=== PATIENT | male | born 1950 ===

== ENCOUNTER 2016-07-23 14:45 | Inpatient (IN) | payer OTHER, MEDICARE ==
[~2016-07-23] VITALS: Ht 175.3 cm; Wt 100.0 kg
--- NOTE | 2016-07-23 18:15 | NUR ---
Nurses Admission Note 66 year old involuntary male OSWALDO'd on 07/21/16 at 0830 in [facility] as danger to himself. Patient has had episodes of unpredictable behaviors involving suicidal gestures and attempts. In June patient had an episode with a police stand off where he had a loaded gun threatening to kill himself. Patient was discharged home with follow-up after a brief detainment. On 07/20/16, patient was found by his attempting to cut his wrist with a knife. Patient reports the night before,he had a nightmare sleep walking thinking his needed his help and began kicking the sliding door to get out. He sustained significant bruising to his shins. Patient presented alert,oriented and somewhat baffled about the previous events. He states."I'm fine now but this keeps happening and getting more frequent." Patient has multiple medical problems to include spinal damage that requires surgery,chronic pain back and L shoulder requiring frequent use of a rolling walker for stability. Patient uses a Bi-PAP for sleep apnea, Asthma,CVA, HPTN,CAD,BPH. Patient denied auditory hallucinations, current feelings of self harm. Will monitor q 15min. for safety and support.
[2016-07-23] MEDS ORDERED: Benzocaine-Menthol Lozenge 2/Pkg PO PRN (21:05)
[2016-07-23] MEDS ORDERED: Alum-Mag Hydrox-Simeth 30 mL Suspension PO PRN (21:05)
[2016-07-23] MEDS ORDERED: Magnesium Hydroxide 10 mL Oral Concentration PO PRN (21:05)
[2016-07-23] MEDS ORDERED: Albuterol HFA 200 Puff Inhaler (Vent Pts Only) INHALATION PRN (21:50)
--- NOTE | 2016-07-24 05:20 | NUR ---
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 HS meds were not available prior to pt going to sleep but requested 10mg of Ativan at bedtime instead of taking the 5mg with a repeat. Pt also given Ultram 50mg and Vistaril 50mg prn. Pt woke up at 0020 requesting another Ultram and was given his night time meds at this time. Pt taking Cefdinir antibiotic which was prescribed on 07/21 at [place] for bronchitis and is to take this medication BID until 07/31. Pharmacy called to say that [facility] does not carry this medication and recommended pt take a 1x dose of Azithromycin 250mg tonight and resume the Cefdinir tomorrow if can bring from home. This was communicated to pt. Order obtained and medication given. Pt has an order to use home CPAP which is at bedside. Thoughts organized, linear and logical, denies depression or anxiety, no signs of psychosis observed or elicited. Monitored pt. with q15 min face checks for safety location and accountability.
[2016-07-24] MEDS: Pantoprazole 40 mg ER24 Tablet PO SCH (08:24)
[2016-07-24] MEDS: ASTELIN 0.1% NASAL SCH (08:30)
[2016-07-24] MEDS: CEFDINIR 300 MG PO SCH (08:30)
[2016-07-24] MEDS: DULoxetine 30 mg DR Capsule PO SCH ×2 (08:30→14:25)
[2016-07-24] MEDS: ARIPiprazole 10 mg Tablet PO SCH (08:31)
[2016-07-24] MEDS: MeTOProlol XL 25 mg ER24 Tablet PO SCH (08:32)
[2016-07-24 09:15] VITALS: BP 117/79; PULSE 63; RESP 16
[2016-07-24] MEDS: Fluticasone 100 mCg Inhaler INHALATION SCH ×2 (10:01→21:38)
[2016-07-24 11:45] VITALS: PULSE 86; RESP 18; O2SAT 94
[2016-07-24] MEDS: Budesonide 0.5 mg/2 mL Inhalation Solution NEB SCH ×2 (11:45→20:30)
--- NOTE | 2016-07-24 13:58 | NUR ---
Nursing Note [id number] Behavior S/O: Pt ate 60% of breakfast & 40% of lunch. Vital signs stable. Pt d/n attend any groups. Seen by hospitalist d/t multiple medications not in [facility] formulary. Hospitalist has requested we call spouse & see if she can bring in medications. Pt alert & oriented X 4. Pt has multiple bruises on left arm & leg he attributes to "waking up at night when my was in trouble...I tried to knock down the door to get to her." Pleasant & cooperative with cares. Pt resting in room most of the day. A: No psychotic sx noted at this time. P: Provide supportive environment. Monitor medications & effects.
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
--- NOTE | 2016-07-24 15:25 | DRSVH ---
PROCEDURE: X-RAY LEFT SHOULDER, ONE VIEW ([id number]) INDICATIONS: lt shoulder pain after possible trauma TECHNIQUE: Single view of the shoulder were acquired. COMPARISON: None. FINDINGS: Bones: No current dislocation. There is slight depression of the superolateral humeral head which ma y represent a Hill-Sachs lesion from prior dislocation. There are healed fractures of the visualized left 7th, and 8th ribs. Soft tissues: No suspicious soft tissue calcifications. IMPRESSION: 1. No definite fracture or dislocation. 2. Possible Hill-Sachs lesion from prior shoulder dislocation. 3. Multiple healed left-sided rib fractures. Dictated by: Robin Navarrete M.D. on 07/24/2016 at 15:17 Approved by: Robin Navarrete M.D. on 07/24/2016 at 15:19
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
--- NOTE | 2016-07-24 19:54 | NUR ---
Observations 0900 to 2130 Pt affect and mood was flat, guarded and isolative. Pt was isolative coming out of room for meals and visitation. Pt did not attend community meeting, group or unit activities. Pt was minimally social when approached by staff. Pt attended meals in D.R. and ate approximately 50-75% of meals. Pt was offered snack but declined. Pt was polite, pleasant and cooperative. Pt maintained behavior throughout the shift. Pt was observed every 15 minutes throughout the shift as ordered. Pt is currently resting in bed, eyes closed, respirations apparent.
[2016-07-24 21:44] VITALS: BP 123/83; PULSE 61; RESP 16
--- NOTE | 2016-07-25 05:29 | NUR ---
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 Patient received repeat Ambien 5 mg po and small HS snack, then retired back to room. Patient noted to be asleep in room using CPAP. Patient noted to be up briefly at 0245, but returned to sleep by 0300 without any further complaints voiced.
[2016-07-25] MEDS: CEFDINIR 300 MG PO SCH (08:30)
[2016-07-25] MEDS: ASTELIN 0.1% NASAL SCH (08:30)
[2016-07-25 08:54] VITALS: BP 111/72; PULSE 72; RESP 17
[2016-07-25 09:05] VITALS: PULSE 83; RESP 18; O2SAT 93
[2016-07-25] MEDS: Budesonide 0.5 mg/2 mL Inhalation Solution NEB SCH ×2 (09:05→20:30)
[2016-07-25] MEDS: Pantoprazole 40 mg ER24 Tablet PO SCH (09:15)
[2016-07-25] MEDS: ARIPiprazole 10 mg Tablet PO SCH (09:16)
[2016-07-25] MEDS: Fluticasone 100 mCg Inhaler INHALATION SCH ×2 (09:16→21:18)
[2016-07-25] MEDS: DULoxetine 30 mg DR Capsule PO SCH ×2 (09:16→14:54)
[2016-07-25] MEDS: MeTOProlol XL 25 mg ER24 Tablet PO SCH (09:18)
--- NOTE | 2016-07-25 12:54 | NUR ---
Nursing Note [id number] Behavior, Mood S/O: Pt ate 75% of breakfast & 50% of lunch. Pt c/o pain at a "6" on a scale of 1-10/10 the worst this am. Ultram 50 mg given at 0935. Pt states, "It didn't help." He again requested "something for pain" at 1245. Ultram 50 mg & Baclofen 10 mg given. Pt c/o pain when walking at 1245 at a "8"/10. He c/o of left upper extremity pain at a "12"/10. Pt rated his mood at a "2" on a scale of 1-10/10 the worst. He denies suicidal/homicidal ideation. Pt appropriate with staff & peers. Conversation tracking clear & organized with normal rate & rhythm. Pt asking appropriate questions about court tomorrow. Pt has agreed to take medications prior to court. A: No noted s/sx psychosis. P: Provide supportive environment. Monitor medications & effects.
--- NOTE | 2016-07-25 15:47 | NUR ---
Observations 0900 to 2130 Pt affect and mood was flat, guarded, sullen and isolative. Pt was isolative coming out of room for meals only. Pt did not attend community meeting, group or unit activities. Pt was minimally social when approached by staff. Pt attended meals in D.R. and ate approximately 50-75% of meals. Pt was offered snack but declined. Pt was polite, pleasant and cooperative. Pt maintained behavior throughout the shift. Pt used the phone a couple of times. Pt was offered a shower but he declined at this time. Pt was observed every 15 minutes throughout the shift as ordered.
[2016-07-25] MEDS ORDERED: Albuterol-Ipratropium 3 mL Inhalation Solution ONE (21:14)
--- NOTE | 2016-07-25 22:12 | PCM.PNMED ---
Subjective Date of Service July 25, 2016 Subjective Patient is seen and examined. He is requesting alternate dosing of tramadol which is put in. He states that he was trying to protect (during one of his spells )his when he threw his left shoulder around and now it is bothering him Exam Vital Signs Vital Sign - Last Date Time Temp Pulse Resp B/P Pulse Ox O2 Delivery O2 Flow Rate FiO2 07/24/16 21:44 61 16 123/83 07/24/16 11:45 94 Room Air 07/24/16 09:15 35.6 Exam Gen.: No acute distress sitting in chatting with HEENT: Normocephalic, atraumatic Heart: Regular rate and rhythmfor sounds Lungs clear to auscultation no crackles or wheezes Abdomen soft nondistended Extremities negative for edema Musculoskeletal positive Enriquez test, positive empty can test range of motion is limited to 130 with abduction of shoulder, palpable glenohumeral joint tenderness Psych: Negative for anxiety Neuro: No focal deficits IVs and Medications IV Fluids None Medications Reviewed: Medications were reviewed in detail Assessment & Plan Acute, active acute encephalopathy, suicidal gestures, ideas, POA, hx of Depression with anxiety, PTSD, no obvious metabolic/toxic etiology causing acute changes of behaviors, paranoia despite multiple medical problems. no new meds except abx. It's more likely due to underlying psychiatric dz. No signs of infection from labs at [place]. Utox was unremarakable. Urinary symptoms are chronic, unchanged per pt. -pt currently mentally stable to give meaningful medical hx, alert and fully oriented. -defer management to psychiatric dz to -will follow patient daily basis, if pt acutely changes level of consciousness, please contact for further eval. superficial laceration on LLE s/p trauma, Lt shoulder pain, POA, pt was injured from acute episode. -will get shoulder xray on Lt shoulder to exclude dislocation, mild fx, clinically very unlikely.: Showed old rib fractures, old hill sach prior dislocation -Tramadol 100mg tid for shoulder pain, explained to him that shoulder injections are only useful up her arthritis -- We will request physical therapy chronic, stable Hypertension, resume home meds toprol, prozosin Hyperlipidemia, resume rosuvastatin Coronary artery disease, history of stent in 2004, nuclear medicine test August 2015 was low risk, EKG at [facility]. continue aspirin, plavix, metoprolol. Melanoma, HCC right shoulder, she reported it was stage III, was fully removed, unlikely active problem Asthma, continue Qvar, singulair, pulmicort(if not formulary, needs to bring from home, asked staff reporter already) History of bladder cancer s/p TURP, chemo, continue flomax SVETA on BIPAP, noticed at the bedside, continue while in house Chronic diastolic congestive heart failure, echo 2014 EF55%, [id number], clinically seems euvolemic CVA, no focal deficit noted on exam. BPH, continue flomax GERD, continue ranitidine or protonix hemorrhoids, not active ?neuropathy, unclear of Lyrica, zanaflex, baclofen, will verify with patient/ family, and continue. dvt ppx: ambulation Pain Evaluation: Pain not Controlled Time spent 20 minutes Yari Enriquez DO July 25, 2016 06:13
--- NOTE | 2016-07-25 23:05 | PCM.PNPSY ---
Subjective Date of Service July 25, 2016 Subjective The patient reported doing well today. He denied any psychotic symptoms and reported that he slept well. He reported that in addition to the two more recent episodes which appear to be in the context of insomnia, there was also a psychiatric hospitalization in 2012 or 2013 in [place], [place] at [facility] [phone]. He denies side effects and reports sleeping well. Sleep: "great" 6+ hours per staff Appetite: good Suicidal and homicidal ideation: denies Auditory hallucinations: denies Visual hallucinations: denies Other Psychotic Symptoms: N/A Anxiety: "fine" Depression: 0/10 Current Medications Current Medications Aripiprazole 10 mg DAILY PO Last administered on 07/25/16 09:16; Admin Dose 10 MG; Start 07/24/16 at 08:30 Aspirin 81 mg DAILY PO Last administered on 07/25/16 09:17; Admin Dose 81 MG; Start 07/24/16 at 08:30 Azithromycin 250 mg ONCE ONCE PO Last administered on 07/24/16 00:22; Admin Dose 250 MG; Start 07/23/16 at 23:45; Stop 07/23/16 at 23:56; Status DC Budesonide 0.5 mg BID NEB Last administered on 07/25/16 09:05; Admin Dose 0.5 MG; Start 07/24/16 at 08:30 Clopidogrel Bisulfate 75 mg DAILY PO Last administered on 07/25/16 09:18; Admin Dose 75 MG; Start 07/24/16 at 08:30 Duloxetine HCl 60 mg BID@08,1430 PO Last administered on 07/25/16 14:54; Admin Dose 60 MG; Start 07/24/16 at 08:00 Fluticasone Propionate 1 puff BID INHALATION Last administered on 07/25/16 21: 18; Admin Dose 1 PUFF; Start 07/24/16 at 08:30 Loratadine 10 mg DAILY PO Last administered on 07/24/16 08:31; Admin Dose 10 MG ; Start 07/24/16 at 08:30; Stop 07/24/16 at 20:49; Status DC Metoprolol Succinate 25 mg DAILY PO Last administered on 07/25/16 09:18; Admin Dose 25 MG; Start 07/24/16 at 08:30 Pantoprazole 40 mg 0630 PO Last administered on 07/25/16 09:15; Admin Dose 40 MG; Start 07/24/16 at 06:30 Pregabalin 50 mg TID PO Last administered on 07/25/16 21:21; Admin Dose 50 MG; Start 07/24/16 at 08:30 Rosuvastatin Calcium 10 mg DAILY PO Last administered on 07/25/16 09:17; Admin Dose 10 MG; Start 07/24/16 at 08:30 Tamsulosin HCl 0.4 mg DAILY PO Last administered on 07/25/16 09:17; Admin Dose 0.4 MG; Start 07/24/16 at 08:30 Tramadol HCl 100 mg TID PRN PO Last administered on 07/25/16 21:23; Admin Dose 100 MG; Start 07/25/16 at 20:30 Mental Status Exam Appearance: Neat/well groomed Attitude: Pleasant, Cooperative Behavior: No unusual behavior Affect: Well Modulated/Appropriate Mood: Euthymic Thought Process/Associations: Logical/Sequential, Goal Directed Speech Production: Normal Speech Rate: Normal Speech Articulation: Normal Thought Content: Appropriate Danger to Self/Suicidal Ideati: None Danger to Others: None Hallucinations: Auditory (Denies), Visual (Denies) Consciousness: Alert Orientation: Person, Place, Date, Situation Memory: Grossly Intact Estimate Intellectual Function: Average Basis for IQ estimate: Awareness current events, Word use/vocabulary, Educational history, Employment history Attention/Concentration & Cogn: Impaired Insight: Good Judgement: Good Mental Health Plan The patient is a 66-year-old gentleman with a 30-year history of depression and 20-year history of episodic psychotic symptoms and a 2-1/2-year history of posttraumatic stress disorder who presents with worsening paranoia and hallucinations occurring over the last month and, in particular, over the last few days. Since receiving medications in the emergency department and on the unit, the patient reports the resolution of psychotic symptoms. The patient is currently receiving aripiprazole 10 mg daily pending verification of current dose. It is possible that the patient has some residual effect from his stroke given his inability to repeat a phrase, although this may simply be an incidental finding. Otherwise, his mental status appears to be intact. The patient was seen by internal medicine, medications were streamlined and the patient reports no adverse consequences. [place] I. 1. Major depressive disorder with psychotic features by history. 2. Posttraumatic stress disorder. 3. History of alcohol use disorder, in current remission. [place] II. Deferred. [place] III. See past medical history. [place] IV. Moderate with purchase of home upcoming and some problems on inspection. [place] V. Global Assessment of Functioning 40. Treatments 1. The patient is admitted to the inpatient unit and will be provided a safe and secure environment. 2. The patient is currently denying active suicidality and is not in need of a one-to-one at this time. 3. The patient is encouraged to participate with group and milieu activities. 4. The patient will be seen by the treatment team on a daily basis to assess symptoms, side effects and response to treatment. 5. Awaiting records from [facility] to help clarify circumstances of admission and possible hypothesis of sleep deprivation as causation. 6. Appreciate Internal Medicine consult 7. Will increase prazosin to 4 mg at bedtime if the patient's blood pressure remains stable and insomnia difficulties/nightmares continue. 8. Hydroxyzine 50 mg q.4 h. p.r.n. anxiety or agitation. 9. Zolpidem 5 mg nightly p.r.n. insomnia. May repeat x1. 10. Anticipated length of stay is 5-7 days. Winston Vanegas MD July 25, 2016 23:05
--- NOTE | 2016-07-25 23:13 | NUR ---
NURSING NOTE [id number] Mood: "good, really, really good" Affect: pleasant, bright in conversation Behavior: visible off and on during the shift; intermittently watching TV w/peers or resting in bed Thought processes: pt. denies SI/HI/AH/VH. When asked if he is having any issues here whatsoever he denies. He identified his reason for being here as having the doctor "help me identify what my triggers are so I can figure out why what happened to me keeps happening." He elaborated that he can remember the event (referring to his recent suicide attempt) but not "how he got there". PRNs Tramadol 50 mg + Baclofen 10 mg @ 16:40 Tramadol 100 mg + Baclofen 10 mg @ 21:23
--- NOTE | 2016-07-26 06:21 | NUR ---
Nursing Note 11pm to 7am Pigment Grinder Pt received Ambien 5mg x2 before start of shift. Awoke at 0100 requesting Ultram 100mg and Vistaril 50mg, and went back to sleep until 0500. No issues observed or reported. Monitored pt with q 15 minute face checks for safety, location and accountability.
[2016-07-26 07:23] VITALS: PULSE 67; RESP 18; O2SAT 98
[2016-07-26] MEDS: Budesonide 0.5 mg/2 mL Inhalation Solution NEB SCH ×2 (07:23→19:59)
[2016-07-26] MEDS: ASTELIN 0.1% NASAL SCH (08:30)
[2016-07-26] MEDS: CEFDINIR 300 MG PO SCH (08:30)
[2016-07-26] MEDS: MeTOProlol XL 25 mg ER24 Tablet PO SCH (10:18)
[2016-07-26] MEDS: Fluticasone 100 mCg Inhaler INHALATION SCH ×2 (10:19→20:39)
[2016-07-26] MEDS: DULoxetine 30 mg DR Capsule PO SCH ×2 (10:25→15:18)
[2016-07-26] MEDS: Pantoprazole 40 mg ER24 Tablet PO SCH (10:26)
[2016-07-26] MEDS: ARIPiprazole 10 mg Tablet PO SCH (10:26)
[2016-07-26 14:22] VITALS: BP 165/93; PULSE 57; RESP 16
--- NOTE | 2016-07-26 14:55 | NUR ---
Nursing Note [id number] Behavior S/O: Pt ate 60% of breakfast & 75% of lunch. Pt reports he is "feeling better." He states he just wants to know what's causing his sudden desires for killing himself. Pt has had Tramadol 100 mg & Baclofen 10 mg for pain at 1020. He requested Tramadol again at 1525, but took Tylenol 650 mg instead for his generalized pain. Affect if full. Pt alert & oriented X4. Conversation tracking clear & organized with normal rate & rhythm. Pleasant & cooperative. A: No psychotic sx noted today. P: Provide supportive environment. Monitor medications & effects.
--- NOTE | 2016-07-26 17:31 | NUR ---
Observations [id number] Pt was asleep upon start of shift. Pt continues to spend the majority of the day in his room sleeping. Pt is friendly with peers and staff when approached. Pt attended all meals, eating 100%. Pt showered in the morning. He is drinking lots of juice as he states that the water tastes like salt. Pt attended court today and appears to feel good regarding the decision. He was observed every 15 minutes of shift as directed.
[2016-07-26] MEDS: Lidocaine Topical 5% Patch TOPICAL SCH (19:10)
[2016-07-26 19:59] VITALS: PULSE 76; RESP 18; O2SAT 95
--- NOTE | 2016-07-26 21:23 | PCM.PNMED ---
Subjective Date of Service July 26, 2016 Subjective We discussed patient's main complaint his left shoulder pain. He states that he would like to follow up with as an outpatient, though he would not mind getting some help here at the hospital. She has no numbness tingling down his arms Exam Vital Signs Vital Sign - Last Date Time Temp Pulse Resp B/P Pulse Ox O2 Delivery O2 Flow Rate FiO2 07/26/16 19:59 76 18 95 Room Air 07/26/16 14:22 35.5 165/93 Exam Gen.: No acute distress Heart: Soft systolic murmur, regular rate and rhythm Lungs: Clear to auscultation bilaterally no crackles or wheezes Abdomen obese nondistended Musculoskeletal: Pain with abduction of the left shoulder, slight weakness in finger chief strategy officer on the left. Palpable tenderness over the glenohumeral joint on the left side Neurological: Symmetrically equal reflexes in upper extremities, no focal deficits Skin skin is warm and dry Psych: Negative for anxiety IVs and Medications Medications Reviewed: Medications were reviewed in detail Lab and Diagnostics X-Rays, CTs and MRIs PROCEDURE: X-RAY LEFT SHOULDER, ONE VIEW ([id number]) INDICATIONS: lt shoulder pain after possible trauma TECHNIQUE: Single view of the shoulder were acquired. COMPARISON: None. FINDINGS: Bones: No current dislocation. There is slight depression of the superolateral humeral head which may represent a Hill-Sachs lesion from prior dislocation. There are healed fractures of the visualized left 7th, and 8th ribs. Soft tissues: No suspicious soft tissue calcifications. IMPRESSION: 1. No definite fracture or dislocation. 2. Possible Hill-Sachs lesion from prior shoulder dislocation. 3. Multiple healed left-sided rib fractures. Dictated by: Robin Navarrete M.D. on 07/24/2016 at 15:17 Approved by: Robin Navarrete M.D. on 07/24/2016 at 15:19 Assessment & Plan Acute, active acute encephalopathy, suicidal gestures, ideas, POA, hx of Depression with anxiety, PTSD, no obvious metabolic/toxic etiology causing acute changes of behaviors, paranoia despite multiple medical problems. no new meds except abx. It's more likely due to underlying psychiatric dz. No signs of infection from labs at [place]. Utox was unremarakable. Urinary symptoms are chronic, unchanged per pt. -pt currently mentally stable to give meaningful medical hx, alert and fully oriented. -defer management to psychiatric dz to -will follow patient daily basis, if pt acutely changes level of consciousness, please contact for further eval. superficial laceration on LLE s/p trauma, Lt shoulder pain, POA, pt was injured from acute episode. Ligamentous strain, tear or partial tear is a possibility -will get shoulder xray on Lt shoulder to exclude dislocation, mild fx, clinically very unlikely.: Showed old rib fractures, old hill sach prior dislocation -Tramadol 100mg tid for shoulder pain, explained to him that shoulder injections are only useful up her arthritis -- We will request physical therapy: Consult is placed -- Lidoderm patches ordered, icing is recommended -- We will contact orthopedics tomorrow to see if they can make any further recommendations chronic, stable Hypertension, resume home meds toprol, prozosin Hyperlipidemia, resume rosuvastatin Coronary artery disease, history of stent in 2004, nuclear medicine test August 2015 was low risk, EKG at [facility]. continue aspirin, plavix, metoprolol. Melanoma, HCC right shoulder, she reported it was stage III, was fully removed, unlikely active problem Asthma, continue Qvar, singulair, pulmicort(if not formulary, needs to bring from home, asked staff physician already) History of bladder cancer s/p TURP, chemo, continue flomax SVETA on BIPAP, noticed at the bedside, continue while in house Chronic diastolic congestive heart failure, echo 2014 EF55%, [id number], clinically seems euvolemic CVA, no focal deficit noted on exam. BPH, continue flomax GERD, continue ranitidine or protonix hemorrhoids, not active ?neuropathy, unclear of Lyrica, zanaflex, baclofen, will verify with patient/ family, and continue. dvt ppx: ambulation Pain Evaluation: Adequate Pain Control Time spent 25 minutes Yari Enriquez DO July 26, 2016 21:23
--- NOTE | 2016-07-26 22:37 | PCM.PNPSY ---
Subjective Date of Service July 26, 2016 Subjective The patient reported doing well today. He denied any psychotic symptoms. He denies side effects and reports sleeping well, but reported that he was still having nightmares and requested to increase prazosin. We discussed using trazodone and patient given informed consent including risk of priapism and patient agreed to continue. Sleep: "just fine" 7+ hours per staff Appetite: okay Suicidal and homicidal ideation: denies Auditory hallucinations: denies Visual hallucinations: denies Other Psychotic Symptoms: N/A Anxiety: denies Depression: "maybe a little" Current Medications Current Medications Lidocaine 1 patch DAILY TOPICAL Last administered on 07/26/16 19:10; Admin Dose 1 PATCH; Start 07/26/16 at 19:10 Prazosin HCl 4 mg HS PO Last administered on 07/26/16 21:35; Admin Dose 4 MG; Start 07/26/16 at 21:00 Tramadol HCl 100 mg TID PRN PO Last administered on 07/26/16 20:36; Admin Dose 100 MG; Start 07/25/16 at 20:30 Trazodone HCl 50 mg HS PO Last administered on 07/26/16 21:37; Admin Dose 50 MG ; Start 07/26/16 at 21:00 Mental Status Exam Vital Signs Vital Signs Date Time Temp Pulse Resp B/P Pulse Ox O2 Delivery O2 Flow Rate FiO2 07/26/16 19:59 76 18 95 Room Air Appearance: Neat/well groomed Attitude: Pleasant, Cooperative Behavior: No unusual behavior Affect: Well Modulated/Appropriate Mood: Euthymic Thought Process/Associations: Logical/Sequential, Goal Directed Speech Production: Normal Speech Rate: Normal Speech Articulation: Normal Thought Content: Appropriate Danger to Self/Suicidal Ideati: None Danger to Others: None Hallucinations: Auditory (Denies), Visual (Denies) Consciousness: Alert Orientation: Person, Place, Date, Situation Memory: Grossly Intact Estimate Intellectual Function: Average Basis for IQ estimate: Awareness current events, Word use/vocabulary, Educational history, Employment history Attention/Concentration & Cogn: Impaired Insight: Good Judgement: Good Mental Health Plan The patient is a 66-year-old gentleman with a 30-year history of depression and 20-year history of episodic psychotic symptoms and a 2-1/2-year history of posttraumatic stress disorder who presents with worsening paranoia and hallucinations occurring over the last month and, in particular, over the last few days. Since receiving medications in the emergency department and on the unit, the patient reports the resolution of psychotic symptoms. The patient is currently receiving aripiprazole 10 mg daily pending verification of current dose. The patient was seen by internal medicine, medications were streamlined and the patient reports no adverse consequences. Awaiting records from hospitalization in [place], [place]. Patient reporting nightmares and requesting increase of prazosin. Patient also requesting medication to help with long- term insomnia; patient agreeable to trial of trazodone. [place] Cent[place] I. 1. Major depressive disorder with psychotic features by history. 2. Posttraumatic stress disorder. 3. History of alcohol use disorder, in current remission. [place] II. Deferred. [place] III. See past medical history. [place] IV. Moderate with purchase of home upcoming and some problems on inspection. [place] V. Global Assessment of Functioning 40. Treatments 1. The patient is admitted to the inpatient unit and will be provided a safe and secure environment. 2. The patient is currently denying active suicidality and is not in need of a one-to-one at this time. 3. The patient is encouraged to participate with group and milieu activities. 4. The patient will be seen by the treatment team on a daily basis to assess symptoms, side effects and response to treatment. 5. Awaiting records from [facility] to help clarify circumstances of admission and possible hypothesis of sleep deprivation as causation. 6. Appreciate Internal Medicine consult 7. Will increase prazosin to 4 mg at bedtime. 8. Hydroxyzine 50 mg q.4 h. p.r.n. anxiety or agitation. 9. Trazodone 50mg po nightly with repeat and Zolpidem 5 mg nightly p.r.n. insomnia. 10. Anticipated length of stay is 3-5 days. Winston Vanegas MD July 26, 2016 22:37
--- NOTE | 2016-07-27 06:26 | NUR ---
Sleep 11p-7a Poor sleep of 2 hours despite receiving all available prn medications for sleep.
[2016-07-27] MEDS: Fluticasone 100 mCg Inhaler INHALATION SCH ×2 (08:11→20:52)
[2016-07-27] MEDS: ASTELIN 0.1% NASAL SCH (08:12)
[2016-07-27] MEDS: ARIPiprazole 10 mg Tablet PO SCH (08:12)
[2016-07-27] MEDS: DULoxetine 30 mg DR Capsule PO SCH ×2 (08:12→13:56)
[2016-07-27] MEDS: Pantoprazole 40 mg ER24 Tablet PO SCH (08:12)
[2016-07-27] MEDS: Lidocaine Topical 5% Patch TOPICAL SCH (08:13)
[2016-07-27] MEDS: CEFDINIR 300 MG PO SCH (08:13)
[2016-07-27] MEDS: MeTOProlol XL 25 mg ER24 Tablet PO SCH (08:13)
[2016-07-27] MEDS: Budesonide 0.5 mg/2 mL Inhalation Solution NEB SCH ×2 (08:30→20:30)
[2016-07-27 08:56] VITALS: PULSE 80; RESP 18; O2SAT 91
--- NOTE | 2016-07-27 11:36 | DRSVH ---
PROCEDURE: X-RAY LEFT SHOULDER, 4 VIEWS INDICATIONS: LEFT SHOULDER PAIN TECHNIQUE: 3 views of the shoulder were acquired. COMPARISON: [facility], CR, XR SHOULDER 1VW LT, 07/24/2016, 14:39. FINDINGS: Bones: No fractures or dislocations. No suspicious bony lesions. Visualized ribs appear intact. H ealed fourth sixth and seventh posterior lateral rib fractures. Mild glenohumeral joint narrowing wit h periarticular osteophyte formation. Slight depression on the superolateral aspect of the humeral h ead redemonstrated suggesting Hill-Sachs lesion from prior shoulder dislocation. Soft tissues: No suspicious soft tissue calcifications. IMPRESSION: Possible Hill-Sachs lesion in the humeral head. If clinical symptoms persist or clinical suspicion f or pathology is high, MRI is suggested for further evaluation. Dictated by: Nickolas CARLIN Interpreted: Sheldon Novoa MD on 07/27/2016 at 11:32 Transcribed by: IRVING on 07/27/2016 at 11:35 Approved by: Sheldon Novoa M.D. on 07/27/2016 at 17:47
--- NOTE | 2016-07-27 14:09 | NUR ---
Nursing Note [id number] Behavior, Coping Skills S/O: Pt at 100% of meals. He rates his mood at a "3" on a scale of 1-10/10 the worst. He denies suicidal/homicidal ideation. Encouraged pt to stay awake today so that he will sleep better tonight. He reports this has been a problem for him at home. Pt stated he like to do woodworking & will start making picture frames when he is discharged. He is hoping the triggers for his suicidal thoughts will be found. He is hoping to discharge at the end on the week. A: No psychotic sx noted at this time. P: Provide supportive environment. Monitor medications & effects.
--- NOTE | 2016-07-27 18:41 | NUR ---
[facility] Day Shift Pt maintained behavioral control throughout the shift. Pt affect appears mostly euthymic. Pt spends most of the shift resting in his room or sitting quietly in the dining room. Pt is appropriate with staff and peers when active on the unit. Pt escorted off unit to receive X-Rays, which were accomplished without incident. Pt attended community meeting, but did not attend group activities. Pt attended all meals and ate approx 100% of all meals.
--- NOTE | 2016-07-27 20:32 | NUR ---
Global Security Architect/Counselor: S/O: Patient only slept 2 hours last night as per staff. He denies S/I and H/I. He denies auditory and visual hallucinations. Depression is "maybe a little." Anxiety is 0/10. A: Patient is cooperative, pleasant, euthymic, fair insight, fair judgment. P: Follow the care plan, coordinate with out-patient providers.
--- NOTE | 2016-07-27 23:37 | PCM.PNPSY ---
Subjective Date of Service July 27, 2016 Subjective The patient reported doing well today. He denied any psychotic symptoms. He denies side effects and reports sleeping not as well, but indicated that he had been sleeping quite a bit during the day. The patient was going to try to avoid naps and see if he could sleep better that way. Records from [facility] arrived but provided little information about his mental state prior to admission and possible precipitants. The patient continued to report having a sore left shoulder. Discussed obtaining PT consult and patient was agreeable. Sleep: 2+ hours per staff Appetite: okay Suicidal and homicidal ideation: denies Auditory hallucinations: denies Visual hallucinations: denies Other Psychotic Symptoms: N/A Anxiety: denies Depression: denies Current Medications Current Medications Lidocaine 1 patch DAILY TOPICAL Last administered on 07/27/16 08:13; Admin Dose 1 PATCH; Start 07/26/16 at 19:10 Prazosin HCl 4 mg HS PO Last administered on 07/27/16 20:47; Admin Dose 4 MG; Start 07/26/16 at 21:00 Trazodone HCl 50 mg HS PO Last administered on 07/27/16 22:04; Admin Dose 50 MG ; Start 07/26/16 at 21:00 Zolpidem Tartrate 5 mg HS PRN PO Last administered on 07/27/16 23:30; Admin Dose 5 MG; Start 07/26/16 at 20:40 Mental Status Exam Appearance: Neat/well groomed Attitude: Pleasant, Cooperative Behavior: No unusual behavior Affect: Well Modulated/Appropriate Mood: Euthymic Thought Process/Associations: Logical/Sequential, Goal Directed Speech Production: Normal Speech Rate: Normal Speech Articulation: Normal Thought Content: Appropriate Danger to Self/Suicidal Ideati: None Danger to Others: None Hallucinations: Auditory (Denies), Visual (Denies) Consciousness: Alert Orientation: Person, Place, Date, Situation Memory: Grossly Intact Estimate Intellectual Function: Average Basis for IQ estimate: Awareness current events, Word use/vocabulary, Educational history, Employment history Attention/Concentration & Cogn: Impaired Insight: Good Judgement: Good Mental Health Plan The patient is a 66-year-old gentleman with a 30-year history of depression and 20-year history of episodic psychotic symptoms and a 2-1/2-year history of posttraumatic stress disorder who presents with worsening paranoia and hallucinations occurring over the last month and, in particular, over the last few days. Since receiving medications in the emergency department and on the unit, the patient reports the resolution of psychotic symptoms. The patient is currently receiving aripiprazole 10 mg daily pending verification of current dose. The patient was seen by internal medicine, medications were streamlined and the patient reports no adverse consequences. Records from hospitalization in [place], [place] arrived but did not discuss prehospitalization status in any detail. Patient reporting poor sleep likely due to daytime napping and will try not to nap today. Discussed potentially using alternate muscle relaxer such as methocarbamol, though not currently available. [place] I. 1. Major depressive disorder with psychotic features by history. 2. Posttraumatic stress disorder. 3. History of alcohol use disorder, in current remission. [place] II. Deferred. [place] III. See past medical history. [place] IV. Moderate with purchase of home upcoming and some problems on inspection. [place] V. Global Assessment of Functioning 40. Treatments 1. The patient is admitted to the inpatient unit and will be provided a safe and secure environment. 2. The patient is currently denying active suicidality and is not in need of a one-to-one at this time. 3. The patient is encouraged to participate with group and milieu activities. 4. The patient will be seen by the treatment team on a daily basis to assess symptoms, side effects and response to treatment. 5. Awaiting records from [facility] to help clarify circumstances of admission and possible hypothesis of sleep deprivation as causation. 6. Appreciate Internal Medicine consult 7. Will increase prazosin to 4 mg at bedtime. 8. Hydroxyzine 50 mg q.4 h. p.r.n. anxiety or agitation. 9. Trazodone 50mg po nightly with repeat and Zolpidem 5 mg nightly p.r.n. insomnia. 10. PT Consult for left should pain 11. Anticipated length of stay is 3-5 days. Winston Vanegas MD July 27, 2016 23:37
--- NOTE | 2016-07-27 23:52 | NUR ---
Nurses Note Evening Patient remains pleasant,polite with clear reality based thoughts. Patient is eager to discharge on Monday but has not slept last evening and has not been able to sleep thus far tonight. Will report to MD in am,maintain q 15min. checks for safety and support. Addendum: 07/27/16 at 6099 by LANA GERBER RN Amended: Links added.
--- NOTE | 2016-07-27 23:57 | PCM.PNMED ---
Subjective Date of Service July 27, 2016 Subjective Patient is seen and examined. He is very appreciative of the care he has received. He wants to follow up with Dr. Evaristo Cheney per orthopedics is able to move his arm better with the help of physical therapy says that Lidoderm patch is helping as well as I icing Exam Vital Signs Vital Sign - Last Date Time Temp Pulse Resp B/P Pulse Ox O2 Delivery O2 Flow Rate FiO2 07/27/16 08:56 80 18 91 Room Air 07/26/16 14:22 35.5 165/93 Exam General: NAD, laying in bed, HEENT: NCAT, Eyes: [place] conjunctivae. No ptosis, PERRL Neck: No masses, trachea midline, no thyromegaly Lungs: CTA with normal respiratory effort, no crackles or wheezes CV: RRR, no murmurs/rubs/gallops, normal PMI GI: Nondistended MSK: Normal gait and station, no digital cyanosis Skin: Warm and dry. No rash, lesions or ulcers Psych: A&O X3, with appropriate affect IVs and Medications Medications Reviewed: Medications were reviewed in detail Lab and Diagnostics X-Rays, CTs and MRIs PROCEDURE: X-RAY LEFT SHOULDER, ONE VIEW ([id number]) INDICATIONS: lt shoulder pain after possible trauma TECHNIQUE: Single view of the shoulder were acquired. COMPARISON: None. FINDINGS: Bones: No current dislocation. There is slight depression of the superolateral humeral head which may represent a Hill-Sachs lesion from prior dislocation. There are healed fractures of the visualized left 7th, and 8th ribs. Soft tissues: No suspicious soft tissue calcifications. IMPRESSION: 1. No definite fracture or dislocation. 2. Possible Hill-Sachs lesion from prior shoulder dislocation. 3. Multiple healed left-sided rib fractures. Dictated by: Robin Navarrete M.D. on 07/24/2016 at 15:17 Approved by: Robin Navarrete M.D. on 07/24/2016 at 15:19 Shoulder x-ray 07/27 IMPRESSION: Possible Hill-Sachs lesion in the humeral head. If clinical symptoms persist or clinical suspicion for pathology is high, MRI is suggested for further evaluation. Dictated by: Nickolas CARLIN Interpreted: Sheldon Novoa MD on 07/27/2016 at 11:32 Transcribed by: IRVING on 07/27/2016 at 11:35 Approved by: Sheldon Novoa M.D. on 07/27/2016 at 17:47 Assessment & Plan Acute, active acute encephalopathy, suicidal gestures, ideas, POA, hx of Depression with anxiety, PTSD, no obvious metabolic/toxic etiology causing acute changes of behaviors, paranoia despite multiple medical problems. no new meds except abx. It's more likely due to underlying psychiatric dz. No signs of infection from labs at [facility]. Utox was unremarakable. Urinary symptoms are chronic, unchanged per pt. -pt currently mentally stable to give meaningful medical hx, alert and fully oriented. -defer management to psychiatric dz to -will follow patient daily basis, if pt acutely changes level of consciousness, please contact for further eval. superficial laceration on LLE s/p trauma, Lt shoulder pain, POA, pt was injured from acute episode. Ligamentous strain, tear or partial tear is a possibility -will get shoulder xray on Lt shoulder to exclude dislocation, mild fx, clinically very unlikely.: Showed old rib fractures, old hill sach prior dislocation -Tramadol 100mg tid for shoulder pain, explained to him that shoulder injections are only useful up her arthritis -- We will request physical therapy: Consult is placed -- Lidoderm patches ordered, icing is recommended -- We will contact orthopedics tomorrow to see if they can make any further recommendations: Called orthopedics, discussed case with [facility]. He asked for for other views of the shoulder to be ordered, reviewed the case with Dr. Cheney, states that there is no concern for shoulder dislocation based on the pictures, they recommend continuing physical therapy then wearing the sling. No benefit to immediate MRI. They are willing to see the patient the patient upon his discharge from the hospital on Monday. This has been communicated to the patient, he expresses his understanding and states he will follow-up with Dr. Cheney chronic, stable Hypertension, resume home meds toprol, prozosin Hyperlipidemia, resume rosuvastatin Coronary artery disease, history of stent in 2004, nuclear medicine test August 2015 was low risk, EKG at [facility] NSR. continue aspirin, plavix, metoprolol. Melanoma, HCC right shoulder, she reported it was stage III, was fully removed, unlikely active problem Asthma, continue Qvar, singulair, pulmicort(if not formulary, needs to bring from home, asked staffing branch manager already) History of bladder cancer s/p TURP, chemo, continue flomax SVETA on BIPAP, noticed at the bedside, continue while in house Chronic diastolic congestive heart failure, echo 2014 EF55%, [id number], clinically seems euvolemic CVA, no focal deficit noted on exam. BPH, continue flomax GERD, continue ranitidine or protonix hemorrhoids, not active ?neuropathy, unclear of Lyrica, zanaflex, baclofen, will verify with patient/ family, and continue. dvt ppx: ambulation Pain Evaluation: Adequate Pain Control Time spent 30 minutes Yari Enriquez DO July 27, 2016 23:57
--- NOTE | 2016-07-28 04:59 | NUR ---
Nursing Noc [id number] Pt remains reality based, requesting medications as available for sleep or fibromyalgia discomfort. Noted to be first asleep at 0145 until 0345. Pt discussed concern of events leading up to this hospitalization and worries how he is normal when he goes to sleep then becomes dangerous to self and completely unaware of what he is doing. Monitor behavior/emotional state, quality, times and amount of sleep, use and effect of medication.
[2016-07-28] MEDS: Fluticasone 100 mCg Inhaler INHALATION SCH (07:47)
[2016-07-28] MEDS: MeTOProlol XL 25 mg ER24 Tablet PO SCH (07:50)
[2016-07-28] MEDS: ASTELIN 0.1% NASAL SCH (07:54)
[2016-07-28] MEDS: CEFDINIR 300 MG PO SCH (07:55)
[2016-07-28] MEDS: Pantoprazole 40 mg ER24 Tablet PO SCH (07:57)
[2016-07-28] MEDS: Lidocaine Topical 5% Patch TOPICAL SCH (07:57)
[2016-07-28] MEDS: DULoxetine 30 mg DR Capsule PO SCH ×2 (07:57→14:30)
[2016-07-28] MEDS: ARIPiprazole 10 mg Tablet PO SCH (07:58)
[2016-07-28 11:00] VITALS: PULSE 82; RESP 18; O2SAT 93
[2016-07-28] MEDS: Budesonide 0.5 mg/2 mL Inhalation Solution NEB SCH (11:00)
[2016-07-28] MEDS ORDERED: ARIP10TA14 PO (14:01)
[2016-07-28] MEDS ORDERED: PREG50CA PO (14:01)
[2016-07-28] MEDS ORDERED: Patient Own Medication NASAL (14:01)
[2016-07-28] MEDS ORDERED: PRAZ2CAP PO (14:01)
[2016-07-28] MEDS ORDERED: TAMS0.4C98 PO (14:01)
[2016-07-28] MEDS ORDERED: LIDO700A6 TOPICAL (14:01)
[2016-07-28] MEDS ORDERED: BACL10TA PO (14:01)
[2016-07-28] MEDS ORDERED: TRAZ-118 PO (14:01)
[2016-07-28] MEDS ORDERED: BUDE0.5A NEB (14:01)
[2016-07-28] MEDS ORDERED: ASPI81TA3 PO (14:01)
[2016-07-28] MEDS ORDERED: METO25TA99 PO (14:01)
[2016-07-28] MEDS ORDERED: CETI10CA PO (14:01)
[2016-07-28] MEDS ORDERED: NITR0.4T SL (14:01)
[2016-07-28] MEDS ORDERED: CREST10T PO (14:01)
[2016-07-28] MEDS ORDERED: PANT40TA3 PO (14:01)
[2016-07-28] MEDS ORDERED: CLOP75TA28 PO (14:01)
[2016-07-28] MEDS ORDERED: DULO30CA PO (14:01)
[2016-07-28] MEDS ORDERED: BECL8.7A6 INHALATION (14:01)
[2016-07-28] MEDS ORDERED: TRAM-14 PO (14:01)
[2016-07-28] MEDS ORDERED: ALBU8.5H2 INHALATION (14:01)
[2016-07-28] MEDS ORDERED: MONT10TA23 PO (14:01)
--- NOTE | 2016-07-28 14:11 | PCM.DIMED ---
Discharge Instructions Date of Service July 28, 2016 Dates of Hospitalization July 23, 2016 at 18:13 Discharge Diagnosis Discharge Diagnosis [place] I. 1. Major depressive disorder with psychotic features by history. 2. Posttraumatic stress disorder. 3. History of alcohol use disorder, in current remission. [place] II. Deferred. [place] III. See past medical history. [place] IV. Moderate with purchase of home upcoming and some problems on inspection. [place] V. Global Assessment of Functioning 50. Medication Instructions Zanaflex (tizanidine) and Zantac (Ranitidine) were discontinued as duplication. Diet Heart Healthy Activity No restrictions Patient Instructions Should you have any thoughts of harming yourself or others, please call the crisis line, your provider, 911, or go to the nearest Emergency Department. Do not change or discontinue your medications without discussing with your provider. You have been given a prescription for 30 days supply of your new medication Follow-up plan Psychiatrist: Dr. Danni Thomas MD [phone] on 08/02/16 at 2:45 [id number] [place] [address] Nikki Montes MD on 08/01/16 at 1:35pm [address] [address] Winston Vanegas MD July 28, 2016 13:40
--- NOTE | 2016-07-28 15:36 | NUR ---
Nursing Discharge Note: Patient cooperative with discharge process. Acknowledges understanding of d/c instructions and has a copy with them upon leaving unit at 1445. Belongings accounted for and with patient. Prescriptions faxed to [facility] pharmacy [place]. Patient denies harmful thoughts and hallucinations at this time.
--- NOTE | 2016-07-28 16:03 | NUR ---
Agency Service Representative/Counselor: S/O: Patient slept 2 hours last night as per staff. He denies S/I and H/I. He denies auditory and visual hallucinations. Depression is 0/10 and anxiety is 0/10. Out-patient appointments: Dr. Montes, Primary Care doctor, 08/01/16 at 1:35pm; Dr. Thomas, psychiatrist, 08/02/16 at 2:45pm. A: Patient is cooperative, pleasant, bright, hopeful, good insight, good judgment. P: Follow the care plan, coordinate with out-patient providers.
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
== END 2016-07-28 14:45 | disposition home or self-care (01) | DRG 885 ==
LOC: MHC 18:13
PROVIDERS: ADMIT Psychiatry & Neurology Psychiatry; ATTEND Psychiatry & Neurology Psychiatry
DX: F33.3 Major depressive disorder, recurrent, severe with psychotic symptoms (principal); I50.32 Chronic diastolic (congestive) heart failure; R45.851 Suicidal ideations; F43.10 Post-traumatic stress disorder, unspecified; F10.21 Alcohol dependence, in remission; M25.512 Pain in left shoulder; I10 Essential (primary) hypertension; E78.5 Hyperlipidemia, unspecified; K21.9 Gastro-esophageal reflux disease without esophagitis; N40.0 Benign prostatic hyperplasia without lower urinary tract symptoms; I25.10 Atherosclerotic heart disease of native coronary artery without angina pectoris; J45.909 Unspecified asthma, uncomplicated